=== PATIENT | male | born 1975 | race Caucasian/White ===

== ENCOUNTER → 2024-10-15 | Outpatient (CLI) | payer BC, SELFPAY ==
[2024-10-15 08:36] LABS: Basophils % (Auto) 1 % (0-2.5); Eosinophils # (Auto) 0.1 Thou/mm3 (0.0-0.5); Eosinophils % (Auto) 2 % (0-10); Hematocrit 46.9 % (41.0-53.0); Hemoglobin 16.1 g/dL (13.5-16.0); Immature Granulocytes % (Auto) 0 % (0-0); Immature Granulocytes Auto 0.01 Thou/mm3 (0.00-0.00); Lymphocytes # (Auto) 1.2 Thou/mm3 (1.0-4.8); Lymphocytes % (Auto) 25 % (10-50); Mean Corpuscular HGB Conc 34.3 g/dl (31.0-37.0); Mean Corpuscular Volume 90 fL (80-100); Monocytes # (Auto) 0.4 Thou/mm3 (0.0-0.8); Monocytes % (Auto) 7 % (0-12); Neutrophils # (Auto) 3.3 Thou/mm3 (1.8-7.7); Neutrophils % (Auto) 65 % (37-80); Nucleated Red Blood Cell % 0 /100 WBC (0); Platelet Count 202 Thou/mm3 (140-440); Red Blood Count 5.19 Miln/mm3 (4.50-5.90); White Blood Count 5.1 Thou/mm3 (3.8-10.6)
[2024-10-15 09:20] LABS: Cardiac Risk Estimate 4.4 RATIO (4.0-6.7); Cholesterol 213 mg/dL (132-200); HDL Cholesterol 48 mg/dL (40-60); LDL Cholesterol,Calculated 140 mg/dL (0-130); Triglycerides 124 mg/dL (30-150)
[2024-10-20 06:33] LABS: Testosterone,Total* 151 ng/dL (250-1100)
== END | disposition home or self-care (01) ==
LOC: COPL 07:25
PROVIDERS: PCP Family Medicine; Referring Provider Family Medicine; Visit Provider Family Medicine
DX: E29.1 Testicular hypofunction (principal); R53.83 Other fatigue
CPT/HCPCS: 36415; 80061; 84403; 85025

== ENCOUNTER 2025-03-26 18:25 | Emergency (ER) | payer BC, SELFPAY ==
[2025-03-26 18:42] VITALS: BP 142/87; PULSE 118; RESP 18; TEMP 37.5; O2SAT 95; BMI 30.8
--- NOTE | 2025-03-26 18:56 | XR_ITS ---
Examination: CT pelvis with intravenous contrast. 2-D sagittal and coronal reconstructions. Date and time of exam:March 26, 20252033 hours INDICATIONS: Testosterone injection today with buttock swelling and fever CTDI: vol (mGy) :9.63 DLP: (mGycm) : 344 Technique: Multiple 3 mm axial sections of the pelvis have been obtained with the 64 slice high resolution scanner. 2-D sagittal and coronal reconstructions. Low dose protocols were performed. One or more of the following dose reduction techniques were used; automated exposure control, adjustment of the mA and/or KV according to patient size, use of iterative reconstruction technique. Findings: Left buttock left posterior flank No tay soft tissue abscess Visualized kidneys demonstrate no hydronephrosis Normal appendix No pelvic abscess Nonobstructive bowel gas pattern No prostatomegaly Prostate calcifications The osseous structures are intact IMPRESSION: Cellulitis pattern in the left buttock subcutaneous fatty tissue and fatty tissue lateral to the left hip No fluid-filled abscess
--- NOTE | 2025-03-26 18:56 | PD.EDRME ---
Rapid Medical Screening Exam [facility] Arrival date/time: 03/26/25 18:25 50M with history of testosterone supplementation (through PCP) presents to ED with L buttock pain/swelling and fevers/chills. Patient ran out of needles and has been using the same needles to inject his testoterone. Chief Complaint: Extremity Problem,Nontraumatic Vital signs: Vital Signs Temperature 99.5 F 03/26/25 18:42 Pulse Rate 118 H 03/26/25 18:42 Respiratory Rate 18 03/26/25 18:42 Blood Pressure 142/87 H 03/26/25 18:42 Pulse Oximetry (%) 95 03/26/25 18:42 Oxygen Delivery Method Room Air 03/26/25 18:42
[2025-03-26] MEDS: KETOROLAC INJ 30 MG/ML VIAL IVP (19:24)
[2025-03-26 19:38] LABS: Lactate (Lactic Acid) 0.9 mMol/L (0.4-2.0)
[2025-03-26 19:40] LABS: Basophils % (Auto) 0 % (0-2.5); Eosinophils # (Auto) 0.1 Thou/mm3 (0.0-0.5); Eosinophils % (Auto) 1 % (0-10); Hematocrit 42.4 % (41.0-53.0); Hemoglobin 15.1 g/dL (13.5-16.0); Immature Granulocytes % (Auto) 0 % (0-0); Immature Granulocytes Auto 0.03 Thou/mm3 (0.00-0.00); Lymphocytes # (Auto) 1.4 Thou/mm3 (1.0-4.8); Lymphocytes % (Auto) 13 % (10-50); Mean Corpuscular HGB Conc 35.6 g/dl (31.0-37.0); Mean Corpuscular Hemoglobin 31.7 pg (25.0-35.0); Mean Corpuscular Volume 89 fL (80-100); Monocytes # (Auto) 0.8 Thou/mm3 (0.0-0.8); Monocytes % (Auto) 7 % (0-12); Neutrophils % (Auto) 79 % (37-80); Nucleated Red Blood Cell % 0 /100 WBC (0); Platelet Count 199 Thou/mm3 (140-440); Red Blood Count 4.77 Miln/mm3 (4.50-5.90); White Blood Count 11.4 Thou/mm3 (3.8-10.6)
[2025-03-26 19:48] LABS: Amphetamine/Methamp Scrn,U Negative (Negative); Barbiturate Screen,Urine Negative (Negative); Benzodiazepines Screen,Urine Negative (Negative); Benzoylecgonine Screen, Ur Negative (Negative); Fentanyl Screen,Urine Negative (Negative); Opiate Screen,Urine Positive (Negative); THC Screen,Urine Negative (Negative)
[2025-03-26 20:04] LABS: Alanine Aminotransferase 21 U/L (10-49); Albumin, Serum 4.6 gm/dL (3.5-5.0); Albumin/Globulin Ratio 1.9 (1.2-2.2); Alkaline Phosphatase 67 U/L (46-116); Anion Gap 5 (7-16); Aspartate Amino Transferase 20 U/L (0-34); BUN/Creatinine Ratio 13 Ratio (12-20); Bilirubin,Total 0.6 mg/dL (0.3-1.2); Blood Urea Nitrogen 13 mg/dL (9-23); Calcium 9.2 mg/dL (8.3-10.6); Calcium (Corrected) 9.2 mg/dL (8.5-10.1); Carbon Dioxide 25.8 mMol/L (20.0-31.0); Chloride 107 mMol/L (98-107); Estimated Creatinine Clearance 108.6 mL/min (>60); Globulin 2.4 gm/dL (2.3-3.5); Glucose 107 mg/dL (74-106); Osmolality,Calculated 275 (275-295); Potassium 3.7 mMol/L (3.4-5.1); Procalcitonin 0.06 ng/ml (0.0-0.49); Sodium 138 mMol/L (136-145); eGFR > 60 See Note
--- NOTE | 2025-03-26 21:20 | PD.EDFEVER ---
ED Fever RME/HPI General Chief Complaint: Extremity Problem,Nontraumatic Stated Complaint: LEFT GLUTEUS NESTOR INFECTION X SATURDAY, FEVER Arrival date/time: 03/26/25 18:25 RME / HPI RME / HPI Narrative: 03/26/25 18:25 50M with history of testosterone supplementation (through PCP) presents to ED with L buttock pain/swelling and fevers/chills. Patient ran out of needles and has been using the same needles to inject his testoterone. ------ Dr. Mcnally?s Main ED Evaluation: 50yo male presents to the ED for a chief complaint of left buttock pain and swelling. Patient states he has been himself injecting testosterone for the last 2 years. Patient states he ran out of needles on Saturday, so he used the same needle to inject himself with testosterone, reporting he has since developed pain and swelling to his left buttock. Patient reports associated fever and chills. Patient denies any N/V/D, abdominal pain or any other associated symptoms. Related Data Home Medications ?Medication ?Instructions ?Recorded ?Confirmed albuterol sulfate 90 mcg/actuation 2 puff inhalation Q6H PRN 11/25/19 08/15/21 aerosol inhaler shortness of breath gabapentin 600 mg tablet 600 mg PO BID 08/14/21 08/15/21 meloxicam 7.5 mg tablet 7.5 mg PO QDAY 08/14/21 08/15/21 montelukast 10 mg tablet 10 mg PO QPM 08/14/21 08/15/21 oxycodone myristate 18 mg capsule 18 mg PO BID 08/14/21 08/15/21 sprinkle extended release 12hr(DON'T CRUSH) (Xtampza ER) oxycodone-acetaminophen 7.5 mg-325 1 tab PO BID PRN Pain 08/14/21 08/15/21 mg tablet Previous Rx's ?Medication ?Instructions ?Recorded cephalexin 500 mg capsule 500 mg PO QID #28 caps 03/26/25 Allergies Allergy/AdvReac Type Severity Reaction Status Date / Time sulfamethoxazole (From Allergy Severe Rash Verified 03/26/25 18:28 Bactrim) trimethoprim (From Bactrim) Allergy Severe Rash Verified 03/26/25 18:28 Sulfa (Sulfonamide Allergy Unknown RASH Verified 03/26/25 18:28 Antibiotics) Review of Systems Review of Systems Systems Reviewed: All systems reviewed, normal except as documented Past Medical History Past Medical History NEUROLOGIC: Positive Head Trauma (mild concussions); Negative Seizures CARDIAC: Negative Cardiac Disorders, Hypercholesterolemia, Congestive Heart Failure or Hypertension RESPIRATORY: Positive Asthma; Negative Chronic Obstructive Pulmonary Disease (COPD) GASTROINTESTINAL: Negative Gastrointestinal Disorders GENITOURINARY: Positive Kidney Stones; Negative Genitourinary Disorders or Renal Disease MUSCULOSKELETAL: Positive Arthritis and Fractures ENT: Positive Head Trauma (mild concussions) ENDOCRINE: Negative Diabetes Mellitus Type 1, Diabetes Mellitus Type 2, Hyperthyroidism or Hypothyroidism HEMATOLOGIC: Negative Blood Disorders, Anemia or Sickle Cell Disease PSYCHO/SOCIAL: Positive Depression (was on meds for 6 years 15 years ago) OTHER HISTORY: Positive Chicken Pox and Mumps; Negative Autoimmune Disease, Falls, Blood Transfusions, Blood Transfusion Reaction, Anesthesia Reactions, MRSA or Cancer Family History FAMILY HISTORY: Positive Family Respiratory Disorders (brother (asthma)), Family Cardiac Disorders (brother (valves)), Family Cancer (mother (pancreatic)) and Family Surgery; Negative Family Psychiatric Problems, Family Gastrointestinal Problems or Family Anesthesia Reaction Surgical History SURGICAL: Positive Nose Surgery (septoplasty) and Tonsillectomy Social History SMOKING STATUS: Never smoker Physical Exam Narrative Physical exam: GENERAL APPEARANCE: alert and oriented x 4, well-developed, well-nourished, no acute distress VITALS: All vitals were reviewed and the pulse ox is 95% on room air, which is normal according to my interpretation. HEENT: Normocephalic, atraumatic; pupils equal, round, reactive to light; EOMI; mucous membranes pink, moist; oropharynx clear NECK: Supple LUNGS: CTABL; no wheezes, no rales, no rhonchi HEART: Regular rate, regular rhythm; normal S1, S2; no murmurs ABDOMEN: non distended; normal BS; soft, no tenderness, no guarding, no rebound; no masses, no organomegaly, no hernia BACK: no CVA tenderness EXTREMITIES: atraumatic; no edema NEUROLOGIC: awake; alert and oriented x4; cranial nerves II-XII grossly intact; no focal sensory or motor deficits PSYCHIATRIC: appropriate mood and affect SKIN: warm, dry; left buttock has erythema, induration, tenderness, and increased warmth Course Quality Measures none Orders Category Date Time Status CT Screening NOW Care 03/26/25 18:56 Active Insert IV NOW Care 03/26/25 18:[address] pelvis w con Stat Exams 03/26/25 18:56 Completed CBC Stat Lab 03/26/25 19:33 Completed CMP [Comprehensive Metabolic Panel] Stat Lab 03/26/25 19:33 Completed Drug Screen,Urine Stat Lab 03/26/25 19:19 Completed Lactate (Lactic Acid) Stat Lab 03/26/25 19:33 Completed Procalcitonin Stat Lab 03/26/25 19:33 Completed Ketorolac Inj [Toradol Inj] Med 03/26/25 18:56 Discontinued 30 mg IVP X1 ONE cefTRIAXone/D5w 1gm IV premix [Rocephin/D5w 1gm IV Med 03/26/25 21:26 Active premix] 1 gm in 50 ml IV X1 Vital Signs Vital signs: Vital Signs Temperature 99.5 F 03/26/25 18:42 Pulse Rate 118 H 03/26/25 18:42 Respiratory Rate 18 03/26/25 18:42 Blood Pressure 142/87 H 03/26/25 18:42 Pulse Oximetry (%) 95 03/26/25 18:42 Oxygen Delivery Method Room Air 03/26/25 18:42 Fever MDM Narrative MDM Narrative:: Scribe Attestation: 03/26/25 Alona Mccarty am scribing for and in the presence of Dr. Mcnally. Patient data External records reviewed:: [facility] previous records (Per chart review, patient has no relevant previous ED visits to this facility.) Clinical information provided by:: patient Social determinants that could affect healthcare access:: none Patient has the following chronic illnesses:: asthma How is presenting disease/condition affected by chronic disease/condition?: uneffected by Evaluation data The following diagnostics were reviewed and interpreted by me:: lab results and radiology exam(s) Lab and/or radiology exams considered but not ordered:: none Interpretation Summary: WBC count is slightly elevated at 11.4, CMP is normal, Lactic Acid is normal, Procalcitonin is normal, UA is positive for opiates, according to my interpretation. [facility] Report Signed Patient: LORENZO SHAH [facility]. Record#: [id number] Birthdate: 1975 Age/Sex: 50 / M Location: [facility] Attending Dr: Ordering Physician: Hguo Dye PA-C Date of Service: 03/26/25 Procedure(s): CT pelvis w con Accession Number(s): [id number] cc: Valeriano Campo MD; NO PRIMARY/FAMILY,PHYSICIAN; Hugo Dye PA-C~ Examination: CT pelvis with intravenous contrast. 2-D sagittal and coronal reconstructions. Date and time of exam:March 26, 2025 203 hours INDICATIONS: Testosterone injection today with buttock swelling and fever CTDI: vol (mGy) :9.63 DLP: (mGycm) : 344 Technique: Multiple 3 mm axial sections of the pelvis have been obtained with the 64 slice high resolution scanner. 2-D sagittal and coronal reconstructions. Low dose protocols were performed. One or more of the following dose reduction techniques were used; automated exposure control, adjustment of the mA and/or KV according to patient size, use of iterative reconstruction technique. Findings: Left buttock left posterior flank No tay soft tissue abscess Visualized kidneys demonstrate no hydronephrosis Normal appendix No pelvic abscess Nonobstructive bowel gas pattern No prostatomegaly Prostate calcifications The osseous structures are intact IMPRESSION: Cellulitis pattern in the left buttock subcutaneous fatty tissue and fatty tissue lateral to the left hip No fluid-filled abscess Dictated By: Valeriano Campo MD Signed By: <Electronically signed by Valeriano Campo MD in OV> 03/26/25 2108 Medications / Prescriptions Medications or Prescriptions considered but not ordered:: none Medication administrations:: Medication Administration History Ceftriaxone Sodium/Dextrose (Rocephin/D5w 1gm Iv Premix) 1 gm in 50 mls @ 100 mls/hr IV X1 ONE Stop: 03/26/25 21:55 Discontinued Medications Ketorolac Tromethamine (Ketorolac Inj 30 Mg/Ml Vial) 30 mg IVP X1 ONE Stop: 03/26/25 18:57 Last Admin: 03/26/25 19:24 Dose: 30 mg Documented By: ANTONIETA see above Consultations Consultation(s) initiated? (list below): No Diagnosis Fever Differential Diagnosis: cellulitis and other (abscess, contusion) Most likely diagnosis given after review of the tests above:: see clinical impression below Admission Indicated Admission indicated?: not indicated Admission Request Was there a request for admission?: No Disposition Plan Disposition Plan: Discharge Discharge Attestation Discharge Attestation: The patient and all family members were given an opportunity to ask questions and understood the discharge instructions. Discharge instructions specifically effects, indications for sooner follow up or return to the emergency department, and the expected course of current diagnosis. Patient condition: Stable Discharge Plan Plan Patient Disposition: HOME (Self Care) Prescriptions/Referrals Prescriptions/Med Rec: New cephalexin 500 mg capsule 500 mg PO QID Qty: 28 0RF No Action albuterol sulfate 90 mcg/actuation HFA aerosol inhaler 2 puff INH Q6H PRN (Reason: shortness of breath) gabapentin 600 mg tablet 600 mg PO BID meloxicam 7.5 mg tablet 7.5 mg PO QDAY montelukast 10 mg tablet 10 mg PO QPM oxycodone-acetaminophen 7.5-325 mg tablet 1 tab PO BID PRN (Reason: Pain) Patient Comments: TAKE ONE TABLET BY MOUTH TWICE DAILY NEEDED DAILY FOR 30 DAYS Xtampza ER 18 mg cap,sprinkl,ER12hr(DONT CRUSH) 18 mg PO BID Referrals: No Primary/Family,Physician [Primary Care Provider] - In 1 week Problem List Clinical Impression: Cellulitis Patient/Caregiver Discharge Instructions Education Materials: ED Cellulitis Print Language: Belarusian Stand Alone Forms: Barbara Award Info., Patient Portal Info Letter
[2025-03-26] MEDS: cefTRIAXone/D5w 1gm IV premix 1 GM/50 ML BAG IV (22:27)
[2025-03-26 22:57] VITALS: BP 118/72; PULSE 72
== END 2025-03-26 22:58 | disposition home or self-care (01) ==
PROVIDERS: Physician Assistant; Emergency Provider Emergency Medicine
DX: L03.317 Cellulitis of buttock (principal)
CPT/HCPCS: 36415; 72193; 80053; 80307; 83605; 84145; 85025; 96374; 99284; A4649; J0696; J1885; Q9967

== ENCOUNTER → 2025-09-14 | Outpatient (CLI) | payer BC, SELFPAY ==
[2025-09-14 09:52] LABS: Basophils # (Auto) 0.1 Thou/mm3 (0.0-0.2); Basophils % (Auto) 1 % (0-2.5); Eosinophils # (Auto) 0.1 Thou/mm3 (0.0-0.5); Eosinophils % (Auto) 2 % (0-10); Hematocrit 50.3 % (41.0-53.0); Hemoglobin 16.8 g/dL (13.5-16.0); Immature Granulocytes Auto 0.01 Thou/mm3 (0.00-0.00); Lymphocytes # (Auto) 1.2 Thou/mm3 (1.0-4.8); Lymphocytes % (Auto) 25 % (10-50); Mean Corpuscular HGB Conc 33.4 g/dl (31.0-37.0); Mean Corpuscular Hemoglobin 30.2 pg (25.0-35.0); Mean Corpuscular Volume 91 fL (80-100); Monocytes # (Auto) 0.3 Thou/mm3 (0.0-0.8); Monocytes % (Auto) 7 % (0-12); Neutrophils # (Auto) 3.0 Thou/mm3 (1.8-7.7); Neutrophils % (Auto) 65 % (37-80); Nucleated Red Blood Cell # 0.00 Thou/mm3 (0.00-0.00); Nucleated Red Blood Cell % 0 /100 WBC (0); Platelet Count 203 Thou/mm3 (140-440); RDW Standard Deviation 42.7 fL (35.1-43.9); Red Blood Count 5.56 Miln/mm3 (4.50-5.90); White Blood Count 4.6 Thou/mm3 (3.8-10.6)
[2025-09-14 10:20] LABS: Alanine Aminotransferase 18 U/L (10-49); Albumin, Serum 4.5 gm/dL (3.5-5.0); Albumin/Globulin Ratio 2.4 (1.2-2.2); Alkaline Phosphatase 71 U/L (46-116); Anion Gap 8 (7-16); Aspartate Amino Transferase 22 U/L (0-34); BUN/Creatinine Ratio 13 Ratio (12-20); Bilirubin,Total 0.5 mg/dL (0.3-1.2); Blood Urea Nitrogen 13 mg/dL (9-23); Calcium 9.1 mg/dL (8.3-10.6); Calcium (Corrected) 9.1 mg/dL (8.5-10.1); Carbon Dioxide 27.8 mMol/L (20.0-31.0); Cardiac Risk Estimate 4.0 RATIO (4.0-6.7); Chloride 108 mMol/L (98-107); Cholesterol 185 mg/dL (132-200); Creatinine (Component) 1.0 mg/dL (0.6-1.3); Globulin 1.9 gm/dL (2.3-3.5); Glucose 105 mg/dL (74-106); HDL Cholesterol 46 mg/dL (40-60); LDL Cholesterol,Calculated 116 mg/dL (0-130); Osmolality,Calculated 286 (275-295); Potassium 4.9 mMol/L (3.4-5.1); Sodium 144 mMol/L (136-145); Total Protein 6.4 gm/dL (5.7-8.2); Triglycerides 117 mg/dL (30-150); eGFR > 60 See Note
[2025-09-20 06:57] LABS: Testosterone,Total* 62 ng/dL (250-1100)
== END | disposition home or self-care (01) ==
PROVIDERS: PCP Family Medicine; Referring Provider Family Medicine; Visit Provider Family Medicine
DX: E29.1 Testicular hypofunction (principal)
CPT/HCPCS: 36415; 80053; 80061; 84403; 85025